=== PATIENT | male | born 1970 | race Caucasian/White ===

== ENCOUNTER → 2016-06-29 | Outpatient (CLI) | payer OTHER ==
[~2016-06-29] MED LIST: AMBIEN10 M1 PO; ATIVAN1 MG PO; HYDROCODONE/ACE1 T11 PO; PREDNICOT20 MG PO; ROBITUSSIN AC 110 ML PO; SONATA5 MG PO; ZITHROMAX Z PA250 MG PO
== END | disposition home or self-care (01) ==
LOC: LAB 01:54
PROVIDERS: Internal Medicine
DX: F11.90 Opioid use, unspecified, uncomplicated (principal); F51.04 Psychophysiologic insomnia; M25.512 Pain in left shoulder

== ENCOUNTER 2017-08-13 09:03 | Emergency (ER) | payer OTHER ==
[~2017-08-13] VITALS: Ht 185.4 cm; Wt 65.8 kg
[2017-08-13] MEDS ORDERED: FLONASE ALLERG9.9 ML NAS ×2 (09:51→09:53)
[2017-08-13] MEDS ORDERED: ZITHROMAX250 MG PO ×2 (09:51→09:53)
[2017-08-13] MEDS ORDERED: ROBITUSSIN DM 105 ML PO ×2 (09:51→09:53)
[2017-08-13] MEDS ORDERED: PROAIR HFA8.5 GM INH (10:06)
== END 2017-08-13 09:57 | disposition home or self-care (01) ==
LOC: ED 09:03
DX: J20.9 Acute bronchitis, unspecified (principal); J01.90 Acute sinusitis, unspecified

== ENCOUNTER 2024-02-12 23:52 | Emergency (ER) | payer SELFPAY ==
[~2024-02-12] VITALS: Ht 180.3 cm; Wt 74.8 kg
[~2024-02-12 23:52] MED LIST changes: +FLONASE ALLERG9.9 ML NAS; +PROAIR HFA8.5 GM INH; +ROBITUSSIN DM 105 ML PO; +ZITHROMAX250 MG PO
== END 2024-02-13 01:16 | disposition home or self-care (01) ==
LOC: ED 23:52
DX: B34.9 Viral infection, unspecified (principal); Z20.822 Contact with and (suspected) exposure to COVID-19; F41.9 Anxiety disorder, unspecified; Z98.890 Other specified postprocedural states

== ENCOUNTER → 2024-03-08 | Outpatient (CLI) | payer OTHER ==
[2024-03-08 09:59] LABS: BASO # 0.1 10*3/uL (0.0-0.1); BASO % 1.2 % (0.0-1.0); EOS # 0.1 10*3/uL (0.0-0.4); EOS % 1.6 % (1.0-4.0); HEMATOCRIT 37.6 % (42.0-52.0); MEAN CORPUSCULAR HGB 28.8 pg (27.0-31.0); MEAN CORPUSCULAR HGB CONC 31.6 g/dl (33.0-37.0); MONO # 0.4 10*3/uL (0.1-1.0); MONO % 6.6 % (3.0-9.0); NEUT # 2.6 10*3/uL (2.3-7.9); NEUT % 44.7 % (47.0-73.0); PLATELET COUNT AUTOMATED 257 10*3/uL (130-400); RED BLOOD COUNT 4.13 10*6/uL (4.50-5.90); RED CELL DISTRI WIDTH 13.9 % (0-14.5); WHITE BLOOD COUNT 5.8 10*3/uL (4.8-10.8)
[2024-03-08 10:22] LABS: ALKALINE PHOSPHATASE 104 U/L (46-116); BUN 11 mg/dl (9-23); CHLORIDE 104 mmol/L (98-107); POTASSIUM 4.6 mmol/L (3.4-5.1); SGPT/ALT 15 U/L (5-49); TOTAL PROTEIN 6.8 gm/dL (6.0-8.0)
== END | disposition home or self-care (01) ==
LOC: LAB 09:37
PROVIDERS: ATTEND Internal Medicine
DX: R10.13 Epigastric pain (principal)